=== PATIENT | female | born 1940 | race Caucasian/White ===

== ENCOUNTER → 2020-10-01 11:27 | Outpatient (CLI) | payer MEDICARE, SELFPAY ==
[2020-10-01 12:50] LABS: Add Manual Diff / Slide Review NO; Basophils Absolute Auto 100 /uL (0-100); Basophils Percent Auto 0.9 % (0-2); Eosinophils Absolute Auto 300 /uL (0-450); Eosinophils Percent Auto 4.6 % (2-4); Hematocrit 36.7 % (36-46); Hemoglobin 12.4 g/dL (12.0-16.0); Lymphocytes Absolute Auto 1600 /uL (1100-4500); Lymphocytes Percent Auto 26.4 % (25-40); Mean Corpuscular HGB Conc 33.8 % (30-36); Mean Corpuscular Hemoglobin 31.6 PG (26-34); Mean Corpuscular Volume 93.4 fL (80-100); Monocytes Absolute Auto 500 /uL (0-900); Monocytes Percent Auto 8.9 % (3-14); Neutrophils Absolute Auto 3600 /uL (1500-7000); Neutrophils Percent Auto 59.2 % (50-75); Platelet Count 204 X10^3/uL (150-400); Red Blood Cell Count 3.93 X10^6/uL (4.0-5.2); White Blood Cell Count 6.1 X10^3/uL (4.5-11.0)
[2020-10-01 13:33] LABS: Alanine Aminotransferase 22 IU/L (<35); Albumin 4.4 g/dL (3.5-5.0); Albumin Globulin Ratio 1.5 (1.0-2.8); Alkaline Phosphatase 87 U/L (38-126); Aspartate Aminotransferase 27 IU/L (14-36); BUN Creatinine Ratio 42.1 (6-22); Bilirubin Total 0.4 mg/dL (0.2-1.3); Blood Urea Nitrogen 48 mg/dL (7-17); Calcium 10.3 mg/dL (8.4-10.2); Carbon Dioxide 23 mmol/L (22-32); Chloride 108 mmol/L (98-107); Cholesterol 166 mg/dL (140-199); Estimated Glomerular Filt Rate 45.6 mL/min (>60); Glucose 91 mg/dL (80-110); HDL Cholesterol 82 mg/dL (40-60); HEMOLYSIS < 15 (0-50); LDL Cholesterol Calculated 73 mg/dL (<100); Potassium 4.3 mmol/L (3.4-5.1); Sodium 139 mmol/L (137-145); Total Protein 7.4 g/dL (6.3-8.2); Triglycerides 55 mg/dL (35-150)
[2020-10-01 15:29] LABS: Creatinine Urine Random 53.9 mg/dL
[2020-10-01 15:32] LABS: Microalbumi Creatinin Ratio Ur 16.6 ug/mg CR (<30); Microalbumin Urine Random 0.9 mg/dL (0-1.6)
== END ==
PROVIDERS: PCP Internal Medicine; Referring Provider Internal Medicine; Visit Provider Internal Medicine
DX: E11.9 Type 2 diabetes mellitus without complications (principal); G89.29 Other chronic pain; I10 Essential (primary) hypertension; M54.9 Dorsalgia, unspecified; D64.9 Anemia, unspecified
CPT/HCPCS: 36415; 80053; 80061; 82043; 82570; 85025

== ENCOUNTER 2024-07-11 09:34 | Emergency (ER) | payer MEDICARE, SELFPAY ==
[2024-07-11 09:35] VITALS: BP 185/84; PULSE 83; RESP 14; TEMP 36.6; O2SAT 98
--- NOTE | 2024-07-11 09:40 | ED.GENADULT ---
HPI - General Adult General Chief complaint: Recheck/Abnormal Lab/Rx Stated complaint: type 2 diabetes - unmedicated - poss dementia Time Seen by Provider: 07/11/24 09:40 History of Present Illness HPI narrative: 84-year-old woman presents with her stating that ?she has not been taking her medication, I did not know that, she continues to get worse and I need to know if this is going to get better or continue to get worse?. Her is somewhat pressured, anxious and speaking in very loud tones (he notes that he is partially deaf to explain the loud voice). Patient is calm quiet and has no specific complaints. Turns out that they moved from [place] almost 2 years ago, her last visit was at an [facility] physician's office on July 22. It has been at least a year if not longer that she is taken any medications. Her describes fairly classic progressive dementia signs and symptoms including getting lost while driving, forgetting how to do simple daily tasks. Neither report any acute changes and it is not clear why today was the day that an ER visit was felt to be required. The reports that he has had difficulty in finding a new doctor, it is unclear how much effort he is put into this. Related Data Previous Rx's Medication Instructions Recorded atorvastatin 20 mg tablet 20 mg PO DAILY #90 tabs 11/02/20 losartan 25 mg tablet 25 mg PO DAILY #90 tabs 11/02/20 pioglitazone 30 mg tablet (Actos) 30 mg PO DAILY #90 tabs 11/02/20 spironolactone 25 mg tablet 25 mg PO DAILY #90 tabs 08/19/21 Allergies Allergy/AdvReac Type Severity Reaction Status Date / Time Penicillins [PENICILLINS] Allergy Mild HIVE Verified 07/11/24 09:44 iron AdvReac Severe Diarrhea Verified 07/11/24 09:44 metformin AdvReac Intermediate almost Verified 07/11/24 09:44 Review of Systems Review of Systems ROS Unobtainable: Unobtainable due to mental condition Patient History Medical History (Updated 07/11/24 @ 11:22 by Brittney Mccain MD) Chronic renal failure, stage 3a Allergies (~1972) Rubella (~194) Measles (~194) Chicken pox (~193) Cataracts, bilateral (~2006) Heavy menstrual period (~1979) Essential hypertension Hayfever Chronic back pain (~2010) Diabetes type 2, controlled (~2003) Surgical History (Updated 10/31/20 @ 19:43 by Selina Syed) Anesthesia History of surgery S/P cataract extraction (~2007) S/P hysterectomy (~1982) S/P appy (~1961) Family History (Updated 10/31/20 @ 19:52 by Selina Syed) Father Cancer Mother Breast cancer Brother No problems noted. Grandfather History of heart disease Grandmother No problems noted. Grandfather No problems noted. Grandmother Diabetes mellitus Social History Smoking Status: Never smoker Smoking Status: Never smoker Exam Initial Vital Signs Initial Vital Signs: Vital Signs Temperature 97.9 F 07/11/24 09:35 Pulse Rate 83 07/11/24 09:35 Respiratory Rate 14 07/11/24 09:35 Blood Pressure 185/84 H 07/11/24 09:35 Pulse Oximetry 98 07/11/24 09:35 Oxygen Delivery Method Room Air 07/11/24 09:35 General: Frail but in no acute distress. HEENT: Moist mucous membranes, normal sclera with reactive pupils, Respiratory: Lungs are clear to auscultation, no wheezing no rales no rhonchi. Full and symmetrical air movement Cardiac: Regular rate and rhythm, 3/6 murmur Abdomen: Soft, nontender, good bowel tones, no flank pain Skin: Thin but otherwise Warm and dry, no rashes Neurologic: Grossly neurologically intact with no obvious asymmetries or abnormalities Extremities: No trauma, well perfused Psych: Cooperative, she is oriented to time and place. She offers very little in terms of history and answers yes or no questions with a rather blank face but a happy smile. Course Orders Ordered: ED Orders 07/11/24 10:13 Complete Blood Count AUTO DIFF Stat Comprehensive Metabolic Panel Stat Hemoglobin A1C% w Est Avg Glu Stat Lipase Stat TSH w/ Reflex to FT4 Stat Vital Signs Vital signs: Vital Signs - 8 hr 07/11/24 09:35 Temperature 97.9 F Pulse Rate 83 Respiratory Rate 14 Blood Pressure 185/84 H Pulse Oximetry 98 Oxygen Delivery Method Room Air Medical Decision Making Lab Data 07/11/24 10:13 07/11/24 10:13 Labs: Lab Results 07/11/24 Range/Units 10:13 WBC 7.3 (4.5-11.0) X10^3/uL RBC 4.37 (4.0-5.2) X10^6/uL Hgb 13.0 (12.0-16.0) g/dL Hct 39.2 (36-46) % MCV 89.8 (80-100) fL MCH 29.8 (26-34) PG MCHC 33.2 (30-36) % RDW 13.7 (11.6-14.8) % Plt Count 265 (150-400) X10^3/uL Neut % (Auto) 72.8 (50-75) % Lymph % (Auto) 17.4 L (25-40) % Baldwin % (Auto) 6.8 (3-14) % Eos % (Auto) 2.2 (2-4) % Baso % (Auto) 0.8 (0-2) % Neut # (Auto) 5300 (4148-9146) /uL Lymph # (Auto) 1300 (3462-0741) /uL Baldwin # (Auto) 500 (0-900) /uL Eos # (Auto) 200 (0-450) /uL Baso # (Auto) 100 (0-100) /uL Sodium 136 L (137-145) mmol/L Potassium 3.3 L (3.4-5.1) mmol/L Chloride 107 (98-107) mmol/L Carbon Dioxide 23 (22-32) mmol/L BUN 19 H (7-17) mg/dL Creatinine 0.93 (0.52-1.04) mg/dL Estimated GFR 60 (>60) mL/min BUN/Creatinine Ratio 20.4 (6-22) Glucose 177 H (80-110) mg/dL Hemoglobin A1c 6.9 H (4.0-6.0) % Calcium 9.1 (8.4-10.2) mg/dL Total Bilirubin 0.6 (0.2-1.3) mg/dL AST 24 (14-36) IU/L ALT 15 (<35) IU/L Alkaline Phosphatase 82 (38-126) U/L Total Protein 6.3 (6.3-8.2) g/dL Albumin 3.6 (3.5-5.0) g/dL Globulin 2.7 (1.7-4.1) g/dL Albumin/Globulin Ratio 1.3 (1.0-2.8) Lipase 97 (23-300) U/L TSH 1.58 (0.47-4.68) uIU/mL MDM Narrative Medical decision making narrative: CC: Not taking medication Complicating co-morbidities: Progressive dementia, has not seen a physician in 2 years, Data collected from: patient, majority of history for his from her Social determinants of health that may influence the patients condition: Has been is frustrated with her driving abilities, getting lost with driving, not remembering how to put the car in park and wants to know if she is going to get better or worse to know if she can continue to drive and wants her back on all of her medications so she improves rapidly. Medical records reviewed: Medical records from her last physician, Dr. Jennyfer serrano in [facility] have been requested. Most recent notes from July and May of 2022 are to be faxed Differential considered: Alzheimer's type dementia, off medications for 2 years and doing fairly well, Exam documented above, pertinent findings include: No acute findings on her exam Lab Test results independently reviewed as above. Pertinent findings: CBC is unremarkable, no signs of anemia Chemistries are relatively reassuring. Creatinine is appropriate. The mildly low potassium at 3.3. Glucose at 177 with a hemoglobin of 6.9 TSH is appropriate Discussion: 84-year-old woman with ?2 years of not taking her medications and increasing forgetfulness?. Lab work is reassuring. Presentation and concerns are consistent with a progressive dementia rather than any acute findings. There was no indication for additional imaging at this time. There was no signs of infection, stroke or life-threatening issue that would require additional imaging or hospitalization. We were able to arrange an appointment with an outpatient doctor, Dr. Hayes, at 8:00 a.m. in 2 days, July 13. Patient and her will be given all of the information. We did receive records from her physician in [place] and they will be given those records to share with Dr. Hayes with their appointment on Thursday Discharge Plan Departure Patient Disposition: Home Clinical Impression: Dementia Qualifiers: Dementia type: Alzheimer's Alzheimer's disease onset: unspecified onset Dementia severity: unspecified severity Dementia behavioral or psychological symptom: without behavioral, psychotic, or mood disturbance or anxiety Qualified Code(s): G30.9 - Alzheimer's disease, unspecified Hypertension Qualifiers: Hypertension type: primary hypertension Qualified Code(s): I10 - Essential (primary) hypertension Activity Restrictions/Additional Instructions: I am sorry that you have been having so many difficulties getting into a primary care physician I understand that you are concerned with progressive confusion and forgetfulness. I also appreciate that you want to be back on your medications. In the emergency department there was no life-threatening abnormalities appreciated, blood work was done and was reassuring I have gotten records from your primary doctor in [place], these were in the envelope I gave you the discharge from the emergency department. Please make sure you give these records to your new doctor. I got you an appointment with a new doctor, Dr. Hayes. She is at [address], [address] The appointment is for July 13,THIS Thursday. Two days from now. You need to arrive at 8:00 a.m. She will review all of your primary care concerns and help you decide which medications you do and do not need Prescriptions: No Action atorvastatin 20 mg tablet 20 mg PO DAILY Qty: 90 0RF losartan 25 mg tablet 25 mg PO DAILY Qty: 90 0RF pioglitazone [Actos] 30 mg tablet 30 mg PO DAILY Qty: 90 0RF spironolactone 25 mg tablet 25 mg PO DAILY Qty: 90 0RF Stand Alone Forms: Patient Portal/API/Survey
--- NOTE | 2024-07-11 10:06 | PC.NURSE ---
TOUCH UP PAINTER Note: Called [facility] and was able to establish patient with an appointment with Dr. Hayes on 07/13/2024 with an 8:00 am check-in at [facility] ? [address] [place] [address], [address].
[2024-07-11 10:24] LABS: Add Manual Diff / Slide Review NO; Basophils Absolute Auto 100 /uL (0-100); Basophils Percent Auto 0.8 % (0-2); Eosinophils Absolute Auto 200 /uL (0-450); Eosinophils Percent Auto 2.2 % (2-4); Hematocrit 39.2 % (36-46); Lymphocytes Absolute Auto 1300 /uL (1100-4500); Lymphocytes Percent Auto 17.4 % (25-40); Mean Corpuscular HGB Conc 33.2 % (30-36); Mean Corpuscular Hemoglobin 29.8 PG (26-34); Mean Corpuscular Volume 89.8 fL (80-100); Monocytes Absolute Auto 500 /uL (0-900); Monocytes Percent Auto 6.8 % (3-14); Neutrophils Absolute Auto 5300 /uL (1500-7000); Neutrophils Percent Auto 72.8 % (50-75); Platelet Count 265 X10^3/uL (150-400); Red Blood Cell Count 4.37 X10^6/uL (4.0-5.2); Red Cell Distribution Width 13.7 % (11.6-14.8); White Blood Cell Count 7.3 X10^3/uL (4.5-11.0)
[2024-07-11 10:35] LABS: Alanine Aminotransferase 15 IU/L (<35); Albumin 3.6 g/dL (3.5-5.0); Albumin Globulin Ratio 1.3 (1.0-2.8); Alkaline Phosphatase 82 U/L (38-126); Aspartate Aminotransferase 24 IU/L (14-36); BUN Creatinine Ratio 20.4 (6-22); Bilirubin Total 0.6 mg/dL (0.2-1.3); Blood Urea Nitrogen 19 mg/dL (7-17); Calcium 9.1 mg/dL (8.4-10.2); Carbon Dioxide 23 mmol/L (22-32); Chloride 107 mmol/L (98-107); Estimated Glomerular Filt Rate 60 mL/min (>60); Globulin 2.7 g/dL (1.7-4.1); Glucose 177 mg/dL (80-110); HEMOLYSIS < 15 (0-50); Lipase 97 U/L (23-300); Potassium 3.3 mmol/L (3.4-5.1); Sodium 136 mmol/L (137-145); Total Protein 6.3 g/dL (6.3-8.2)
[2024-07-11 10:38] LABS: Hemoglobin A1C% w Est Avg Glu 6.9 % (4.0-6.0)
[2024-07-11 11:06] LABS: TSH w/ Reflex to FT4 1.58 uIU/mL (0.47-4.68)
[2024-07-11 11:30] VITALS: BP 209/94; PULSE 74; O2SAT 95
== END 2024-07-11 11:30 | disposition home or self-care (01) ==
PROVIDERS: Emergency Provider Emergency Medicine
DX: G30.9 Alzheimer's disease, unspecified (principal); I10 Essential (primary) hypertension; E87.6 Hypokalemia
CPT/HCPCS: 36415; 80053; 83036; 83690; 84443; 85025; 99283

== ENCOUNTER → 2024-10-28 10:08 | Outpatient (CLI) | payer MEDICARE, SELFPAY ==
[2024-10-28 11:23] LABS: BUN Creatinine Ratio 22.9 (6-22); Blood Urea Nitrogen 33 mg/dL (7-17); Calcium 9.7 mg/dL (8.4-10.2); Carbon Dioxide 24 mmol/L (22-32); Chloride 101 mmol/L (98-107); Cholesterol 159 mg/dL (140-199); Estimated Glomerular Filt Rate 35 mL/min (>60); Glucose 131 mg/dL (80-110); HDL Cholesterol 69 mg/dL (40-60); HEMOLYSIS < 15 (0-50); LDL Cholesterol Calculated 77 mg/dL (<100); Potassium 4.2 mmol/L (3.4-5.1); Sodium 136 mmol/L (137-145); Triglycerides 67 mg/dL (35-150)
[2024-10-28 11:26] LABS: Hemoglobin A1C% w Est Avg Glu 6.2 % (4.0-6.0)
[2024-10-28 12:06] LABS: Creatinine Urine Random 51.44 mg/dL
[2024-10-28 12:10] LABS: Microalbumin Urine Random 2.1 mg/dL (0-1.6)
== END ==
PROVIDERS: PCP Family Medicine; Referring Provider Family Medicine; Visit Provider Family Medicine
DX: E11.9 Type 2 diabetes mellitus without complications (principal); I12.9 Hypertensive chronic kidney disease with stage 1 through stage 4 chronic kidney disease, or unspecified chronic kidney disease; N18.31 Chronic kidney disease, stage 3a
CPT/HCPCS: 36415; 80048; 80061; 82043; 82570; 83036

== ENCOUNTER → 2024-11-09 13:31 | Outpatient (CLI) | payer MEDICARE, SELFPAY ==
--- NOTE | 2024-11-09 13:32 | DI.US.S_ITS ---
PROCEDURE: US RENAL COMPLETE INDICATIONS: Abnormal lab results TECHNIQUE: Real-time scanning was performed of the kidneys and bladder, with image documentation. COMPARISON: None. FINDINGS: Kidneys: Kidneys are normal in size. Right kidney measures 8.6 cm long; left kidney measures 9.4 cm long. Right renal cortical thickness is 1.5 cm; left renal cortical thickness is 1.6 cm. Renal cortical echotexture is normal. No hydronephrosis or nephrolithiasis. No suspicious solid mass lesions. Bladder: Pre-void bladder volume is 378 mL. Post-void residual is 0 mL. Pre-void images demonstrate no intraluminal masses or stones. On pre-void images, neither ureteral jets are noted with color Doppler interrogation. (Of note, ureteral jets may not be detectable in up to 25% of cases due to insufficient differences in specific gravity between ureteral and bladder urine). Miscellaneous: No free pelvic fluid. IMPRESSION: Normal appearance of the kidneys and urinary bladder. Dictated by: Clarence Parker M.D. on 11/09/2024 at 16:08 Approved by: Clarence Parker M.D. on 11/09/2024 at 16:09
== END ==
PROVIDERS: PCP Family Medicine; Referring Provider Family Medicine; Visit Provider Family Medicine
DX: N28.9 Disorder of kidney and ureter, unspecified (principal); N18.31 Chronic kidney disease, stage 3a; I12.9 Hypertensive chronic kidney disease with stage 1 through stage 4 chronic kidney disease, or unspecified chronic kidney disease
CPT/HCPCS: 76770